=== PATIENT | male | born 1930 | race Caucasian/White ===

== ENCOUNTER 2017-05-19 12:41 | Inpatient (IN) ==
[2017-05-19] MEDS ORDERED: PANTOPRAZOLE 40 MG VIAL IV STA (13:17)
[2017-05-19] MEDS ORDERED: ONDANSETRON 4 MG/2 ML VIAL IV STA (13:17)
[2017-05-19] MEDS ORDERED: METOCLOPRAMIDE 10 MG/2 ML VIAL IV STA (13:17)
[2017-05-19 13:29] LABS: Basophils % 0.3 % (0.0-0.8); Hematocrit 23.5 VOL% (42.0-52.0); Hemoglobin 7.2 GM/DL (14.0-18.0); Immature Granulocytes % 0.3 %; Immature Granulocytes Absolute 0.02 #; Lymphocytes # 1.2 10*3/uL (1.4-4.0); Lymphocytes % 14.8 % (21.2-54.2); Mean Corpuscular HGB Conc 30.6 GM/DL (32-36); Mean Corpuscular Hemoglobin 28 PG (27-34); Mean Corpuscular Volume 91.4 FL (87-102); Mean Platelet Volume 11.7 FL (9.6-12.0); Monocytes # 0.4 10*3/uL (0.11-0.8); Monocytes % 4.6 % (1.7-12.7); Neutrophils # 6.3 10*3/uL (1.4-7.4); Platelet Count 153 T/CUMM (130-400); Red Blood Count 2.57 MC/CUMM (3.8-5.5); Red Cell Distribution Width 14.6 % (9.3-17.3); White Blood Count 7.8 T/CUMM (4-12)
[2017-05-19] MEDS ORDERED: ONDANSETRON 4 MG/2 ML VIAL ONE (13:30)
[2017-05-19] MEDS ORDERED: METOCLOPRAMIDE 10 MG/2 ML VIAL ONE (13:30)
[2017-05-19] MEDS ORDERED: PANTOPRAZOLE 40 MG VIAL IV ONE (13:30)
[2017-05-19 13:37] LABS: INR 1.1; PT Patient Result 11.9 SECS
[2017-05-19 13:43] LABS: Alanine Aminotransferase 12 U/L (16-61); Alkaline Phosphatase 59 U/L (45-117); Aspartate Amino Transferase 24 U/L (0-37); Blood Urea Nitrogen 55 MG/DL (7-18); Calcium 8.6 MG/DL (8.5-10.1); Glucose 126 MG/DL (74-106); Osmolality,Calculated 302.8 MOS/KG (273-304); Potassium 4.4 MMOL/L (3.5-5.1); Sodium 144 MMOL/L (136-145); Total Protein 5.4 G/DL (6.4-8.3)
[2017-05-19] MEDS ORDERED: TRIAZOLAM 0.25 MG PO PRN (16:07)
[2017-05-19] MEDS ORDERED: ONDANSETRON 4 MG/2 ML VIAL IV PRN (16:07)
[2017-05-19] MEDS ORDERED: NITROGLYCERIN SL 0.4 MG TABLET SL PRN (16:07)
[2017-05-19] MEDS ORDERED: SODIUM CHLORIDE 0.9% 1,000 ML IV PRN (16:07)
[2017-05-19 16:30] LABS: Hematocrit 19.1 VOL% (42.0-52.0)
[2017-05-19 16:47] LABS: Hemoglobin 5.9 GM/DL (14.0-18.0)
[2017-05-19 19:51] LABS: Apearance,Urine CLEAR (Clear); Bacteria,Urine Occasional /HPF (Few); Bilirubin,Urine Negative (Negative); Blood, Urine Negative (Negative); Glucose,Urine (UA) Negative (Negative); Ketones,Urine Negative (Negative); Mucus,Urine Occasional /LPF (Occasional); Nitrite,Urine Negative (Negative); Protein,Urine Negative; RBC,Urine <1 /HPF (0-4); Urine Color Yellow (Yellow); Urine Specific Gravity 1.017 (1.001-1.035); Urine Urobilinogen < 2.0 EU/DL (0.2-1.0); WBC,Urine 1 /HPF (0-6)
[2017-05-19] MEDS: PANTOPRAZOLE 40 MG VIAL IV SCH (21:19)
[2017-05-19] MEDS: SILODOSIN 8 MG CAPSULE PO SCH (21:19)
[2017-05-19 22:04] LABS: Hematocrit 20.1 VOL% (42.0-52.0)
[2017-05-19 22:08] LABS: Hemoglobin 6.4 GM/DL (14.0-18.0)
[2017-05-20] MEDS: SODIUM CHLORIDE 0.9% 1,000 ML IV SCH ×3 (02:17→21:39)
[2017-05-20 04:14] LABS: Basophils % 0.3 % (0.0-0.8); Eosinophils % 0.5 % (0.00-10.9); Hematocrit 21.5 VOL% (42.0-52.0); Immature Granulocytes % 0.6 %; Immature Granulocytes Absolute 0.04 #; Lymphocytes # 1.3 10*3/uL (1.4-4.0); Lymphocytes % 20.2 % (21.2-54.2); Mean Corpuscular HGB Conc 32.6 GM/DL (32-36); Mean Corpuscular Hemoglobin 29 PG (27-34); Mean Corpuscular Volume 90.3 FL (87-102); Mean Platelet Volume 11.7 FL (9.6-12.0); Monocytes # 0.5 10*3/uL (0.11-0.8); NRBC # 0.05 10*3/uL; Neutrophils # 4.6 10*3/uL (1.4-7.4); Neutrophils % 71.4 % (38.7-73.9); Platelet Count 103 T/CUMM (130-400); Red Blood Count 2.38 MC/CUMM (3.8-5.5); Red Cell Distribution Width 14.6 % (9.3-17.3); White Blood Count 6.5 T/CUMM (4-12)
[2017-05-20 04:46] LABS: Calcium 7.9 MG/DL (8.5-10.1); Osmolality,Calculated 301.8 MOS/KG (273-304); Potassium 4.3 MMOL/L (3.5-5.1)
[2017-05-20 04:53] LABS: % Iron Saturation 92.1 % (18-50); Ferritin 1526.6 ng/ml (26-388)
[2017-05-20 05:48] LABS: Folate 18.4 NG/ML (5.4-24.0); Vitamin B12 733 PG/ML (211-911)
[2017-05-20 06:07] LABS: Giant Platelets Few; Hypochromasia 1+; Ovalocytes Slight; Platelet Estimate Decreased
[2017-05-20 07:02] LABS: Sedimentation Rate-Westergren 5 MM/HR (0-20)
[2017-05-20] MEDS ORDERED: PANTOPRAZOLE 40 MG VIAL IV SCH (09:00)
[2017-05-20 10:02] LABS: Hematocrit 21.7 VOL% (42.0-52.0); Hemoglobin 6.9 GM/DL (14.0-18.0)
[2017-05-20] MEDS ORDERED: SODIUM CHLORIDE 0.9% 1,000 ML IV PRN (10:07)
[2017-05-20] MEDS: NEBIVOLOL 5 MG TABLET PO SCH (10:08)
[2017-05-20] MEDS: PANTOPRAZOLE 40 MG VIAL IV SCH ×2 (10:09→21:35)
[2017-05-20] MEDS: ATORVASTATIN 10 MG TABLET PO SCH (10:09)
[2017-05-20] MEDS: FUROSEMIDE 20 MG TABLET PO PRN (10:09)
[2017-05-20] MEDS: ASPIRIN EC 81 MG TABLET PO SCH (10:09)
[2017-05-20] MEDS: SILODOSIN 8 MG CAPSULE PO SCH (17:08)
[2017-05-20] MEDS: SIMETHICONE CHEW 80 MG TABLET PO SCH ×2 (17:08→21:35)
[2017-05-21] MEDS: DIPHENOXYLATE/ATROPINE 2.5-0.025 MG TABLET PO PRN ×2 (00:52→11:06)
[2017-05-21 06:34] LABS: Basophils % 0.1 % (0.0-0.8); Eosinophils % 0.4 % (0.00-10.9); Hematocrit 19.7 VOL% (42.0-52.0); Immature Granulocytes % 0.4 %; Immature Granulocytes Absolute 0.03 #; Lymphocytes # 1.6 10*3/uL (1.4-4.0); Mean Corpuscular HGB Conc 32.5 GM/DL (32-36); Mean Corpuscular Hemoglobin 29 PG (27-34); Mean Corpuscular Volume 90.4 FL (87-102); Mean Platelet Volume 11.7 FL (9.6-12.0); Monocytes # 0.5 10*3/uL (0.11-0.8); Monocytes % 6.4 % (1.7-12.7); Neutrophils # 5.2 10*3/uL (1.4-7.4); Neutrophils % 70.7 % (38.7-73.9); Platelet Count 106 T/CUMM (130-400); Red Blood Count 2.18 MC/CUMM (3.8-5.5); Red Cell Distribution Width 14.7 % (9.3-17.3); White Blood Count 7.4 T/CUMM (4-12)
[2017-05-21 06:43] LABS: Hemoglobin 6.4 GM/DL (14.0-18.0)
[2017-05-21] MEDS: SODIUM CHLORIDE 0.9% 1,000 ML IV SCH (06:49)
[2017-05-21 06:57] LABS: Calcium 7.8 MG/DL (8.5-10.1); Osmolality,Calculated 299.8 MOS/KG (273-304); Potassium 3.8 MMOL/L (3.5-5.1)
[2017-05-21] MEDS ORDERED: SODIUM CHLORIDE 0.9% 1,000 ML IV PRN (08:34)
[2017-05-21] MEDS: ASPIRIN EC 81 MG TABLET PO SCH (11:06)
[2017-05-21] MEDS: SIMETHICONE CHEW 80 MG TABLET PO SCH ×4 (11:06→21:15)
[2017-05-21] MEDS: PANTOPRAZOLE 40 MG VIAL IV SCH ×2 (11:06→21:15)
[2017-05-21] MEDS: ATORVASTATIN 10 MG TABLET PO SCH (11:06)
[2017-05-21] MEDS: FUROSEMIDE 20 MG TABLET PO PRN (11:06)
[2017-05-21] MEDS: NEBIVOLOL 5 MG TABLET PO SCH (11:06)
[2017-05-21] MEDS: SILODOSIN 8 MG CAPSULE PO SCH (18:51)
[2017-05-21 20:19] LABS: Hematocrit 25.9 VOL% (42.0-52.0); Hemoglobin 8.6 GM/DL (14.0-18.0)
[2017-05-22] MEDS: SODIUM CHLORIDE 0.9% 1,000 ML IV SCH ×4 (01:42→20:38)
[2017-05-22 07:55] LABS: Basophils % 0.4 % (0.0-0.8); Eosinophils # 0.1 10*3/uL (0.0-0.87); Eosinophils % 0.7 % (0.00-10.9); Hematocrit 24.9 VOL% (42.0-52.0); Hemoglobin 8.4 GM/DL (14.0-18.0); Immature Granulocytes % 0.5 %; Immature Granulocytes Absolute 0.04 #; Lymphocytes # 1.7 10*3/uL (1.4-4.0); Lymphocytes % 22.5 % (21.2-54.2); Mean Corpuscular HGB Conc 33.7 GM/DL (32-36); Mean Corpuscular Hemoglobin 30 PG (27-34); Mean Corpuscular Volume 89.2 FL (87-102); Mean Platelet Volume 11.5 FL (9.6-12.0); Monocytes # 0.5 10*3/uL (0.11-0.8); Monocytes % 6.6 % (1.7-12.7); NRBC # 0.03 10*3/uL; Neutrophils # 5.2 10*3/uL (1.4-7.4); Neutrophils % 69.3 % (38.7-73.9); Platelet Count 119 T/CUMM (130-400); Red Blood Count 2.79 MC/CUMM (3.8-5.5); Red Cell Distribution Width 15.6 % (9.3-17.3); White Blood Count 7.5 T/CUMM (4-12)
[2017-05-22 08:10] LABS: Calcium 7.8 MG/DL (8.5-10.1); Osmolality,Calculated 295.8 MOS/KG (273-304); Potassium 3.6 MMOL/L (3.5-5.1)
[2017-05-22] MEDS ORDERED: LIDOCAINE 100 MG/5 ML SYRINGE ONE (09:00)
[2017-05-22] MEDS ORDERED: PROPOFOL 200 MG/20 ML VIAL IV ONE (09:00)
[2017-05-22] MEDS: PANTOPRAZOLE 40 MG VIAL IV SCH ×2 (09:08→20:34)
[2017-05-22] MEDS: ASPIRIN EC 81 MG TABLET PO SCH (10:27)
[2017-05-22] MEDS: ATORVASTATIN 10 MG TABLET PO SCH (10:28)
[2017-05-22] MEDS: SIMETHICONE CHEW 80 MG TABLET PO SCH ×5 (10:28→20:36)
[2017-05-22] MEDS: NEBIVOLOL 5 MG TABLET PO SCH (10:50)
[2017-05-22 13:08] LABS: Hemoglobin A1 (Alkaline) 98.2 % (96.5-98.5); Hemoglobin A2 (Alkaline) 1.8 % (1.5-3.5)
[2017-05-22] MEDS ORDERED: EPINEPHrine 1 MG/ML VIAL ONE (14:22)
[2017-05-22] MEDS: ACETAMINOPHEN 325 MG TABLET PO PRN ×2 (15:22→20:34)
[2017-05-22] MEDS: SILODOSIN 8 MG CAPSULE PO SCH (16:33)
[2017-05-22] MEDS ORDERED: ACETAMINOPHEN 500 MG TABLET PO PRN (20:24)
[2017-05-22] MEDS: DIPHENOXYLATE/ATROPINE 2.5-0.025 MG TABLET PO PRN (20:34)
[2017-05-23] MEDS: SODIUM CHLORIDE 0.9% 1,000 ML IV SCH ×2 (04:53→22:06)
[2017-05-23 05:15] LABS: Basophils % 0.2 % (0.0-0.8); Eosinophils # 0.1 10*3/uL (0.0-0.87); Eosinophils % 1.2 % (0.00-10.9); Hematocrit 22.1 VOL% (42.0-52.0); Hemoglobin 7.3 GM/DL (14.0-18.0); Immature Granulocytes % 0.4 %; Immature Granulocytes Absolute 0.02 #; Lymphocytes # 1.2 10*3/uL (1.4-4.0); Lymphocytes % 22.3 % (21.2-54.2); Mean Corpuscular Hemoglobin 30 PG (27-34); Mean Corpuscular Volume 92.1 FL (87-102); Mean Platelet Volume 11.3 FL (9.6-12.0); Monocytes # 0.4 10*3/uL (0.11-0.8); Monocytes % 7.5 % (1.7-12.7); Neutrophils # 3.6 10*3/uL (1.4-7.4); Neutrophils % 68.4 % (38.7-73.9); Platelet Count 119 T/CUMM (130-400); Red Cell Distribution Width 16.1 % (9.3-17.3); White Blood Count 5.2 T/CUMM (4-12)
[2017-05-23 05:42] LABS: Calcium 7.9 MG/DL (8.5-10.1); Magnesium 1.8 MG/DL (1.8-2.4); Osmolality,Calculated 296.6 MOS/KG (273-304); Potassium 3.6 MMOL/L (3.5-5.1)
[2017-05-23] MEDS ORDERED: SODIUM CHLORIDE 0.9% 1,000 ML IV PRN (09:06)
[2017-05-23] MEDS: ASPIRIN EC 81 MG TABLET PO SCH (09:36)
[2017-05-23] MEDS: NEBIVOLOL 5 MG TABLET PO SCH (09:37)
[2017-05-23] MEDS: SIMETHICONE CHEW 80 MG TABLET PO SCH ×4 (09:37→22:08)
[2017-05-23] MEDS: ATORVASTATIN 10 MG TABLET PO SCH (09:37)
[2017-05-23] MEDS: PANTOPRAZOLE 40 MG VIAL IV SCH ×2 (09:37→22:08)
[2017-05-23 16:57] LABS: Hematocrit 29.4 VOL% (42.0-52.0); Hemoglobin 9.7 GM/DL (14.0-18.0)
[2017-05-23] MEDS: SILODOSIN 8 MG CAPSULE PO SCH (17:46)
[2017-05-23] MEDS: DIPHENOXYLATE/ATROPINE 2.5-0.025 MG TABLET PO PRN (22:07)
[2017-05-24 05:55] LABS: Basophils % 0.6 % (0.0-0.8); Eosinophils # 0.1 10*3/uL (0.0-0.87); Eosinophils % 2.1 % (0.00-10.9); Hemoglobin 9.3 GM/DL (14.0-18.0); Immature Granulocytes % 0.2 %; Immature Granulocytes Absolute 0.01 #; Lymphocytes # 1.3 10*3/uL (1.4-4.0); Lymphocytes % 24.2 % (21.2-54.2); Mean Corpuscular HGB Conc 33.2 GM/DL (32-36); Mean Corpuscular Hemoglobin 30 PG (27-34); Mean Corpuscular Volume 91.2 FL (87-102); Mean Platelet Volume 10.9 FL (9.6-12.0); Monocytes # 0.4 10*3/uL (0.11-0.8); Monocytes % 7.8 % (1.7-12.7); NRBC # 0.02 10*3/uL; Neutrophils # 3.4 10*3/uL (1.4-7.4); Neutrophils % 65.1 % (38.7-73.9); Platelet Count 126 T/CUMM (130-400); Red Blood Count 3.07 MC/CUMM (3.8-5.5); Red Cell Distribution Width 16.5 % (9.3-17.3); White Blood Count 5.3 T/CUMM (4-12)
[2017-05-24 06:26] LABS: Calcium 7.6 MG/DL (8.5-10.1); Magnesium 1.9 MG/DL (1.8-2.4); Osmolality,Calculated 295.4 MOS/KG (273-304); Potassium 3.6 MMOL/L (3.5-5.1)
[2017-05-24] MEDS ORDERED: HYDROCORTISONE 1% CREAM 28 GM TUBE TOP PRN (07:21)
[2017-05-24] MEDS: ATORVASTATIN 10 MG TABLET PO SCH (10:01)
[2017-05-24] MEDS: ASPIRIN EC 81 MG TABLET PO SCH (10:01)
[2017-05-24] MEDS: PANTOPRAZOLE 40 MG VIAL IV SCH ×2 (10:01→20:55)
[2017-05-24] MEDS: FUROSEMIDE 20 MG TABLET PO PRN (10:01)
[2017-05-24] MEDS: NEBIVOLOL 5 MG TABLET PO SCH (10:02)
[2017-05-24] MEDS: SIMETHICONE CHEW 80 MG TABLET PO SCH ×4 (10:04→20:54)
[2017-05-24] MEDS: SODIUM CHLORIDE 0.9% 1,000 ML IV SCH (10:07)
[2017-05-24] MEDS: SILODOSIN 8 MG CAPSULE PO SCH (18:00)
[2017-05-25 03:38] LABS: Basophils % 0.5 % (0.0-0.8); Eosinophils # 0.2 10*3/uL (0.0-0.87); Eosinophils % 3.2 % (0.00-10.9); Hematocrit 27.9 VOL% (42.0-52.0); Hemoglobin 9.1 GM/DL (14.0-18.0); Immature Granulocytes % 0.4 %; Immature Granulocytes Absolute 0.02 #; Lymphocytes # 0.9 10*3/uL (1.4-4.0); Lymphocytes % 15.6 % (21.2-54.2); Mean Corpuscular HGB Conc 32.6 GM/DL (32-36); Mean Corpuscular Hemoglobin 31 PG (27-34); Mean Corpuscular Volume 93.6 FL (87-102); Mean Platelet Volume 10.7 FL (9.6-12.0); Monocytes # 0.5 10*3/uL (0.11-0.8); Monocytes % 8.1 % (1.7-12.7); Neutrophils # 4.1 10*3/uL (1.4-7.4); Neutrophils % 72.2 % (38.7-73.9); Platelet Count 132 T/CUMM (130-400); Red Blood Count 2.98 MC/CUMM (3.8-5.5); Red Cell Distribution Width 16.3 % (9.3-17.3); White Blood Count 5.7 T/CUMM (4-12)
[2017-05-25 04:05] LABS: Calcium 7.6 MG/DL (8.5-10.1); Magnesium 1.8 MG/DL (1.8-2.4); Osmolality,Calculated 290.7 MOS/KG (273-304); Potassium 3.4 MMOL/L (3.5-5.1)
[2017-05-25] MEDS: SODIUM CHLORIDE 0.9% 1,000 ML IV SCH (06:53)
[2017-05-25] MEDS: ASPIRIN EC 81 MG TABLET PO SCH (08:54)
[2017-05-25] MEDS: ATORVASTATIN 10 MG TABLET PO SCH (08:54)
[2017-05-25] MEDS: SIMETHICONE CHEW 80 MG TABLET PO SCH ×2 (08:55→12:18)
[2017-05-25] MEDS: NEBIVOLOL 5 MG TABLET PO SCH (08:55)
[2017-05-25] MEDS: PANTOPRAZOLE 40 MG VIAL IV SCH (08:55)
[2017-05-25] MEDS ORDERED: POTASSIUM CHLORIDE 20 MEQ TABLET PO PRN (11:06)
[2017-05-25] MEDS ORDERED: amLODIPine 2.5 MG TABLET PO SCH (11:30)
[2017-05-25 14:33] VITALS: BP 177/82
== END 2017-05-25 15:30 | disposition home or self-care (01) | DRG 378 ==
LOC: EDUNIT# → EDBD → N.ED 12:41 → SUATTDRO 14:01 → N.EDINP 14:01 → N.4E 16:00
PROVIDERS: ADMIT Hospitalist; ATTEND Internal Medicine Cardiovascular Disease

== ENCOUNTER 2017-12-26 00:35 | Inpatient (IN) ==
[2017-12-26] MEDS ORDERED: SODIUM CHLORIDE 0.9% 500 ML IV STA (00:58)
[2017-12-26 01:10] LABS: Basophils % 0.8 % (0.0-0.8); Eosinophils # 0.1 10*3/uL (0.0-0.87); Eosinophils % 2.6 % (0.00-10.9); Hematocrit 35.3 VOL% (42.0-52.0); Hemoglobin 11.4 GM/DL (14.0-18.0); Immature Granulocytes % 0.2 %; Immature Granulocytes Absolute 0.01 #; Lymphocytes # 1.5 10*3/uL (1.4-4.0); Lymphocytes % 30.1 % (21.2-54.2); Mean Corpuscular HGB Conc 32.3 GM/DL (32-36); Mean Corpuscular Hemoglobin 30 PG (27-34); Mean Corpuscular Volume 92.7 FL (87-102); Mean Platelet Volume 10.8 FL (9.6-12.0); Monocytes # 0.5 10*3/uL (0.11-0.8); Monocytes % 9.7 % (1.7-12.7); Neutrophils # 2.9 10*3/uL (1.4-7.4); Neutrophils % 56.6 % (38.7-73.9); Platelet Count 156 T/CUMM (130-400); Red Blood Count 3.81 MC/CUMM (3.8-5.5); Red Cell Distribution Width 13.7 % (9.3-17.3); White Blood Count 5.1 T/CUMM (4-12)
[2017-12-26 01:37] LABS: Albumin 3.6 G/DL (3.4-5.0); Bilirubin,Total 0.4 MG/DL (0.2-1.0); Calcium 8.8 MG/DL (8.5-10.1); Osmolality,Calculated 292.7 MOS/KG (273-304); Potassium 4.3 MMOL/L (3.5-5.1); Total Protein 6.1 G/DL (6.4-8.3)
[2017-12-26 01:43] LABS: Apearance,Urine CLOUDY (Clear); Bilirubin,Urine Negative (Negative); Blood, Urine Large mg/dL (Negative); Glucose,Urine (UA) Negative (Negative); Ketones,Urine Negative (Negative); Nitrite,Urine Negative (Negative); Protein,Urine 100 MG/DL; RBC,Urine 9093 /HPF (0-4); Urine Color Amber (Yellow); Urine Specific Gravity 1.016 (1.001-1.035); Urine Urobilinogen < 2.0 EU/DL (0.2-1.0)
[2017-12-26] MEDS ORDERED: hydrALAZINE 20 MG/1 ML VIAL IV STA ×2 (02:00)
[2017-12-26] MEDS ORDERED: ONDANSETRON 4 MG/2 ML VIAL IV PRN (02:07)
[2017-12-26] MEDS ORDERED: hydrALAZINE 20 MG/1 ML VIAL IV PRN (02:07)
[2017-12-26] MEDS ORDERED: diphenhydrAMINE CAP 25 MG CAPSULE PO PRN (02:07)
[2017-12-26] MEDS ORDERED: cloNIDine 0.1 MG TABLET PO PRN (02:12)
[2017-12-26] MEDS ORDERED: FUROSEMIDE 20 MG TABLET PO PRN (02:12)
[2017-12-26] MEDS ORDERED: DIPHENOXYLATE/ATROPINE 2.5-0.025 MG TABLET PO PRN (02:12)
[2017-12-26] MEDS ORDERED: KETOROLAC 15 MG/1 ML VIAL IV STA (03:35)
[2017-12-26] MEDS ORDERED: KETOROLAC 30 MG/1 ML VIAL ONE (03:37)
[2017-12-26 07:01] LABS: Basophils % 0.7 % (0.0-0.8); Eosinophils # 0.1 10*3/uL (0.0-0.87); Eosinophils % 1.5 % (0.00-10.9); Hematocrit 31.2 VOL% (42.0-52.0); Hemoglobin 10.1 GM/DL (14.0-18.0); Immature Granulocytes % 0.2 %; Immature Granulocytes Absolute 0.01 #; Lymphocytes # 1.2 10*3/uL (1.4-4.0); Lymphocytes % 25.8 % (21.2-54.2); Mean Corpuscular HGB Conc 32.4 GM/DL (32-36); Mean Corpuscular Hemoglobin 30 PG (27-34); Mean Corpuscular Volume 92.3 FL (87-102); Mean Platelet Volume 10.8 FL (9.6-12.0); Monocytes # 0.3 10*3/uL (0.11-0.8); Monocytes % 7.5 % (1.7-12.7); Neutrophils # 2.9 10*3/uL (1.4-7.4); Neutrophils % 64.3 % (38.7-73.9); Platelet Count 129 T/CUMM (130-400); Red Blood Count 3.38 MC/CUMM (3.8-5.5); Red Cell Distribution Width 13.8 % (9.3-17.3); White Blood Count 4.5 T/CUMM (4-12)
[2017-12-26] MEDS: PANTOPRAZOLE 40 MG TABLET PO SCH ×2 (08:52→21:27)
[2017-12-26] MEDS: FERROUS GLUCONATE 240 MG TABLET PO SCH (08:52)
[2017-12-26] MEDS: MULTIVITAMIN (OCUVITE) TABLET PO SCH ×2 (08:53→21:26)
[2017-12-26] MEDS: LOSARTAN 50 MG TABLET PO SCH ×2 (08:53→21:27)
[2017-12-26] MEDS: ESCITALOPRAM 10 MG TABLET PO SCH (08:53)
[2017-12-26] MEDS: MULTIVITAMIN (CENTRUM) TABLET PO SCH (08:53)
[2017-12-26] MEDS ORDERED: NON-FORMULARY MEDICATION (Dexlansoprazole [Dexilant] 60 MG) PO SCH (09:00)
[2017-12-26] MEDS ORDERED: MORPHINE 4 MG/1 ML VIAL IV PRN (12:10)
[2017-12-26] MEDS ORDERED: NITROGLYCERIN SL 0.4 MG TABLET SL PRN (12:14)
[2017-12-26] MEDS: SILODOSIN 8 MG CAPSULE PO SCH (16:31)
[2017-12-26] MEDS: ATORVASTATIN 10 MG TABLET PO SCH (21:27)
[2017-12-27] MEDS: MULTIVITAMIN (OCUVITE) TABLET PO SCH ×2 (09:14→22:24)
[2017-12-27] MEDS: MULTIVITAMIN (CENTRUM) TABLET PO SCH (09:14)
[2017-12-27] MEDS: FERROUS GLUCONATE 240 MG TABLET PO SCH (09:14)
[2017-12-27] MEDS: ESCITALOPRAM 10 MG TABLET PO SCH (09:14)
[2017-12-27] MEDS: LOSARTAN 50 MG TABLET PO SCH ×2 (09:14→22:26)
[2017-12-27] MEDS: PANTOPRAZOLE 40 MG TABLET PO SCH ×2 (09:14→22:24)
[2017-12-27] MEDS ORDERED: SIMETHICONE CHEW 125 MG TABLET PO PRN (13:00)
[2017-12-27] MEDS: SILODOSIN 8 MG CAPSULE PO SCH (16:15)
[2017-12-27] MEDS: ATORVASTATIN 10 MG TABLET PO SCH (22:24)
[2017-12-27] MEDS: ZALEPLON 5 MG CAPSULE PO PRN (22:24)
[2017-12-28] MEDS: MULTIVITAMIN (CENTRUM) TABLET PO SCH (09:42)
[2017-12-28] MEDS: LOSARTAN 50 MG TABLET PO SCH ×2 (09:42→20:50)
[2017-12-28] MEDS: MULTIVITAMIN (OCUVITE) TABLET PO SCH ×2 (09:42→20:50)
[2017-12-28] MEDS: ESCITALOPRAM 10 MG TABLET PO SCH (09:43)
[2017-12-28] MEDS: PANTOPRAZOLE 40 MG TABLET PO SCH ×2 (09:43→20:50)
[2017-12-28] MEDS: FERROUS GLUCONATE 240 MG TABLET PO SCH (09:43)
[2017-12-28] MEDS: SILODOSIN 8 MG CAPSULE PO SCH (17:50)
[2017-12-28] MEDS: ATORVASTATIN 10 MG TABLET PO SCH (20:50)
[2017-12-28] MEDS: ZALEPLON 5 MG CAPSULE PO PRN (20:50)
[2017-12-28] MEDS: DOCUSATE SODIUM 100 MG CAPSULE PO SCH ×2 (20:50→20:53)
[2017-12-29] MEDS ORDERED: LIDOCAINE 2% TOP JELLY 20 ML VIAL INTRAURETH ONE (06:17)
[2017-12-29] MEDS ORDERED: POLYETHYLENE GLYCOL POWDER 17 GM PACK PO SCH (09:00)
[2017-12-29] MEDS: DOCUSATE SODIUM 100 MG CAPSULE PO SCH (09:22)
[2017-12-29] MEDS: MULTIVITAMIN (CENTRUM) TABLET PO SCH (09:24)
[2017-12-29] MEDS: FERROUS GLUCONATE 240 MG TABLET PO SCH (09:24)
[2017-12-29] MEDS: LOSARTAN 50 MG TABLET PO SCH (09:24)
[2017-12-29] MEDS: ESCITALOPRAM 10 MG TABLET PO SCH (09:24)
[2017-12-29] MEDS: MULTIVITAMIN (OCUVITE) TABLET PO SCH (09:24)
[2017-12-29] MEDS: PANTOPRAZOLE 40 MG TABLET PO SCH (09:24)
[2017-12-29 11:56] VITALS: BP 139/81
== END 2017-12-29 13:05 | disposition home or self-care (01) | DRG 694 ==
LOC: EDUNIT# → EDBD → N.ED 00:35 → N.EDINP 00:35 → N.3E 03:05 → SUATTDRO 14:41
PROVIDERS: ADMIT Internal Medicine; ATTEND Hospitalist

== ENCOUNTER 2018-02-14 11:10 | Inpatient (IN) ==
[2018-02-14] MEDS ORDERED: ONDANSETRON 4 MG/2 ML VIAL IV STA (11:56)
[2018-02-14] MEDS ORDERED: HYDROmorphone 2 MG/1 ML VIAL IV STA (11:56)
[2018-02-14 12:22] LABS: Basophils % 0.5 % (0.0-0.8); Eosinophils # 0.1 10*3/uL (0.0-0.87); Eosinophils % 0.8 % (0.00-10.9); Hematocrit 38.3 VOL% (42.0-52.0); Hemoglobin 11.9 GM/DL (14.0-18.0); Immature Granulocytes % 0.1 %; Immature Granulocytes Absolute 0.01 #; Lymphocytes # 1.4 10*3/uL (1.4-4.0); Lymphocytes % 17.2 % (21.2-54.2); Mean Corpuscular HGB Conc 31.1 GM/DL (32-36); Mean Corpuscular Hemoglobin 29 PG (27-34); Mean Corpuscular Volume 91.8 FL (87-102); Mean Platelet Volume 10.3 FL (9.6-12.0); Monocytes # 0.4 10*3/uL (0.11-0.8); Monocytes % 4.7 % (1.7-12.7); Neutrophils % 76.7 % (38.7-73.9); Platelet Count 233 T/CUMM (130-400); Red Blood Count 4.17 MC/CUMM (3.8-5.5); Red Cell Distribution Width 13.2 % (9.3-17.3); White Blood Count 7.9 T/CUMM (4-12)
[2018-02-14 12:33] LABS: INR 1.1; PT Patient Result 11.8 SECS; Partial Thromboplastin Time 27.7 SECS (0-40)
[2018-02-14 12:39] LABS: Calcium 8.9 MG/DL (8.5-10.1); Osmolality,Calculated 276.8 MOS/KG (273-304); Potassium 4.8 MMOL/L (3.5-5.1)
[2018-02-14 13:30] LABS: Apearance,Urine CLEAR (Clear); Bilirubin,Urine Negative (Negative); Blood, Urine Large mg/dL (Negative); Glucose,Urine (UA) Negative (Negative); Ketones,Urine Negative (Negative); Nitrite,Urine Negative (Negative); Protein,Urine 30 MG/DL; RBC,Urine 948 /HPF (0-4); Urine Color Yellow (Yellow); Urine Specific Gravity 1.003 (1.001-1.035); Urine Urobilinogen < 2.0 EU/DL (0.2-1.0); WBC,Urine 4 /HPF (0-6)
[2018-02-14] MEDS ORDERED: ONDANSETRON 4 MG/2 ML VIAL IV PRN (17:25)
[2018-02-14] MEDS ORDERED: SODIUM CHLORIDE 0.45% 1,000 ML IV SCH (17:25)
[2018-02-14] MEDS ORDERED: PROMETHAZINE 25 MG/1 ML VIAL IM PRN (17:25)
[2018-02-14] MEDS ORDERED: ACETAMINOPHEN 325 MG TABLET PO PRN (17:25)
[2018-02-14] MEDS ORDERED: MEPERIDINE 25 MG/1 ML VIAL IM PRN (19:11)
[2018-02-15 05:55] LABS: Basophils % 0.6 % (0.0-0.8); Eosinophils # 0.1 10*3/uL (0.0-0.87); Eosinophils % 1.8 % (0.00-10.9); Hemoglobin 10.5 GM/DL (14.0-18.0); Immature Granulocytes % 0.3 %; Immature Granulocytes Absolute 0.02 #; Lymphocytes # 1.4 10*3/uL (1.4-4.0); Lymphocytes % 20.8 % (21.2-54.2); Mean Corpuscular HGB Conc 31.8 GM/DL (32-36); Mean Corpuscular Hemoglobin 29 PG (27-34); Mean Corpuscular Volume 92.2 FL (87-102); Mean Platelet Volume 10.3 FL (9.6-12.0); Monocytes # 0.5 10*3/uL (0.11-0.8); Monocytes % 7.8 % (1.7-12.7); Neutrophils # 4.5 10*3/uL (1.4-7.4); Neutrophils % 68.7 % (38.7-73.9); Platelet Count 188 T/CUMM (130-400); Red Blood Count 3.58 MC/CUMM (3.8-5.5); Red Cell Distribution Width 13.3 % (9.3-17.3); White Blood Count 6.5 T/CUMM (4-12)
[2018-02-15] MEDS ORDERED: DIPHENOXYLATE/ATROPINE 2.5-0.025 MG TABLET PO PRN (08:23)
[2018-02-15] MEDS ORDERED: NITROGLYCERIN SL 0.4 MG TABLET SL PRN (08:23)
[2018-02-15] MEDS ORDERED: cloNIDine 0.1 MG TABLET PO PRN (08:23)
[2018-02-15] MEDS ORDERED: Triazolam [Halcion] 0.25 MG PO PRN (08:23)
[2018-02-15] MEDS ORDERED: INFLUENZA VIRUS VACCINE 0.5 ML SYRINGE IM ONE (09:00)
[2018-02-15] MEDS: MULTIVITAMIN (OCUVITE) TABLET PO SCH ×2 (10:31→20:46)
[2018-02-15] MEDS: FERROUS GLUCONATE 324 MG TABLET PO SCH (10:32)
[2018-02-15] MEDS: PANTOPRAZOLE 40 MG TABLET PO SCH (10:32)
[2018-02-15] MEDS: FUROSEMIDE 20 MG TABLET PO SCH (10:32)
[2018-02-15] MEDS: amLODIPine 2.5 MG TABLET PO SCH (10:32)
[2018-02-15] MEDS: LOSARTAN 50 MG TABLET PO SCH ×2 (10:32→20:46)
[2018-02-15] MEDS: MULTIVITAMIN (CENTRUM) TABLET PO SCH (10:35)
[2018-02-15] MEDS ORDERED: SILODOSIN 8 MG CAPSULE PO SCH (18:00)
[2018-02-15] MEDS ORDERED: ESCITALOPRAM 10 MG TABLET PO SCH (19:00)
[2018-02-15] MEDS ORDERED: ATORVASTATIN 10 MG TABLET PO SCH (21:00)
[2018-02-16] MEDS: PANTOPRAZOLE 40 MG TABLET PO SCH (08:41)
[2018-02-16] MEDS: FUROSEMIDE 20 MG TABLET PO SCH (08:41)
[2018-02-16] MEDS: MULTIVITAMIN (CENTRUM) TABLET PO SCH (08:41)
[2018-02-16] MEDS: LOSARTAN 50 MG TABLET PO SCH (08:41)
[2018-02-16] MEDS: MULTIVITAMIN (OCUVITE) TABLET PO SCH (08:41)
[2018-02-16] MEDS: FERROUS GLUCONATE 324 MG TABLET PO SCH (08:41)
[2018-02-16] MEDS: amLODIPine 2.5 MG TABLET PO SCH (08:41)
[2018-02-16 10:52] VITALS: BP 127/69
== END 2018-02-16 10:25 | disposition home or self-care (01) | DRG 696 ==
LOC: N.ED 11:10 → N.EDINP 13:25 → N.2W 16:40 → N.5E 17:30
PROVIDERS: ADMIT Urology; ATTEND Urology

== ENCOUNTER 2018-08-02 05:40 | Inpatient (IN) ==
[2018-08-02] MEDS ORDERED: ceFAZolin 1,000 MG in SYRINGE 1 EACH IV ONE (06:00)
[2018-08-02] MEDS ORDERED: ceFAZolin 1,000 MG VIAL IRRIG ONE (06:00)
[2018-08-02 07:12] LABS: Basophils % 0.7 % (0.0-0.8); Eosinophils # 0.2 10*3/uL (0.0-0.87); Eosinophils % 3.7 % (0.00-10.9); Hematocrit 39.1 VOL% (42.0-52.0); Hemoglobin 11.9 GM/DL (14.0-18.0); Immature Granulocytes % 0.2 %; Immature Granulocytes Absolute 0.01 #; Lymphocytes # 1.4 10*3/uL (1.4-4.0); Mean Corpuscular HGB Conc 30.4 GM/DL (32-36); Mean Corpuscular Hemoglobin 30 PG (27-34); Mean Platelet Volume 11.1 FL (9.6-12.0); Monocytes # 0.5 10*3/uL (0.11-0.8); Neutrophils # 3.2 10*3/uL (1.4-7.4); Neutrophils % 60.4 % (38.7-73.9); Platelet Count 121 T/CUMM (130-400); Red Blood Count 3.99 MC/CUMM (3.8-5.5); Red Cell Distribution Width 12.9 % (9.3-17.3); White Blood Count 5.4 T/CUMM (4-12)
[2018-08-02 07:37] LABS: Calcium 8.6 MG/DL (8.5-10.1); Osmolality,Calculated 285.1 MOS/KG (273-304); Potassium 4.1 MMOL/L (3.5-5.1)
[2018-08-02] MEDS ORDERED: MAGNESIUM SULF RIDER 4 GM in PREMIX 1 EACH IV PRN (07:40)
[2018-08-02] MEDS ORDERED: DOCUSATE SODIUM 100 MG CAPSULE PO PRN (07:40)
[2018-08-02] MEDS ORDERED: MAGNESIUM SULF RIDER 2 GM in PREMIX 1 EACH IV PRN (07:40)
[2018-08-02] MEDS ORDERED: TRIAZOLAM 0.125 MG PO PRN (07:43)
[2018-08-02] MEDS ORDERED: cloNIDine 0.1 MG TABLET PO PRN (07:43)
[2018-08-02] MEDS ORDERED: DIPHENOXYLATE/ATROPINE 2.5-0.025 MG TABLET PO PRN (07:43)
[2018-08-02] MEDS ORDERED: NITROGLYCERIN SL 0.4 MG TABLET SL PRN (07:43)
[2018-08-02] MEDS ORDERED: cephALEXin 500 MG CAPSULE PO ONE (08:39)
[2018-08-02] MEDS ORDERED: DABIGATRAN 75 MG CAPSULE PO SCH (09:00)
[2018-08-02] MEDS: FERROUS GLUCONATE 240 MG TABLET PO SCH (09:46)
[2018-08-02] MEDS: MULTIVITAMIN (OCUVITE) TABLET PO SCH ×2 (09:46→21:03)
[2018-08-02] MEDS: NAPROXEN 250 MG TABLET PO SCH ×2 (09:46→21:03)
[2018-08-02] MEDS: ASPIRIN EC 81 MG TABLET PO SCH (09:47)
[2018-08-02] MEDS: LOSARTAN 50 MG TABLET PO SCH ×2 (09:47→21:03)
[2018-08-02] MEDS: amLODIPine 2.5 MG TABLET PO SCH (09:47)
[2018-08-02] MEDS: MULTIVITAMIN (CENTRUM) TABLET PO SCH (09:47)
[2018-08-02] MEDS: PANTOPRAZOLE 40 MG TABLET PO SCH (09:47)
[2018-08-02] MEDS: DOCUSATE SODIUM 100 MG CAPSULE PO SCH (09:47)
[2018-08-02] MEDS: FUROSEMIDE 20 MG TABLET PO SCH (09:48)
[2018-08-02 11:41] LABS: Apearance,Urine CLEAR (Clear); Bilirubin,Urine Negative (Negative); Blood, Urine Negative (Negative); Glucose,Urine (UA) Negative (Negative); Hyaline Casts,Urine 4 /LPF (0-3); Ketones,Urine Negative (Negative); Mucus,Urine Occasional /LPF (Occasional); Nitrite,Urine Negative (Negative); Protein,Urine Negative; RBC,Urine 6 /HPF (0-4); Urine Color Yellow (Yellow); Urine Specific Gravity 1.011 (1.001-1.035); Urine Urobilinogen < 2.0 EU/DL (0.2-1.0); WBC,Urine 1 /HPF (0-6)
[2018-08-02] MEDS: cephALEXin 500 MG CAPSULE PO SCH ×2 (14:34→21:03)
[2018-08-02] MEDS ORDERED: SKIN HEALING OINT (AQUAPHOR) 50 GM TUBE TOP PRN (15:06)
[2018-08-02] MEDS ORDERED: CLOPIDOGREL 75 MG TABLET PO SCH (19:00)
[2018-08-02] MEDS: ATORVASTATIN 40 MG TABLET PO SCH (21:03)
[2018-08-03] MEDS: ACETAMINOPHEN 325 MG TABLET PO PRN ×2 (03:10→19:29)
[2018-08-03 04:39] LABS: Basophils % 0.6 % (0.0-0.8); Eosinophils # 0.2 10*3/uL (0.0-0.87); Eosinophils % 4.6 % (0.00-10.9); Hematocrit 36.3 VOL% (42.0-52.0); Hemoglobin 11.2 GM/DL (14.0-18.0); Immature Granulocytes % 0.2 %; Immature Granulocytes Absolute 0.01 #; Lymphocytes # 1.7 10*3/uL (1.4-4.0); Lymphocytes % 33.7 % (21.2-54.2); Mean Corpuscular HGB Conc 30.9 GM/DL (32-36); Mean Corpuscular Hemoglobin 30 PG (27-34); Mean Corpuscular Volume 97.6 FL (87-102); Mean Platelet Volume 10.7 FL (9.6-12.0); Monocytes # 0.4 10*3/uL (0.11-0.8); Monocytes % 8.8 % (1.7-12.7); Neutrophils # 2.6 10*3/uL (1.4-7.4); Neutrophils % 52.1 % (38.7-73.9); Platelet Count 115 T/CUMM (130-400); Red Blood Count 3.72 MC/CUMM (3.8-5.5); Red Cell Distribution Width 12.9 % (9.3-17.3)
[2018-08-03 04:51] LABS: Calcium 8.2 MG/DL (8.5-10.1); Potassium 4.1 MMOL/L (3.5-5.1)
[2018-08-03] MEDS: cephALEXin 500 MG CAPSULE PO SCH (06:16)
[2018-08-03] MEDS ORDERED: LIDOCAINE 1% 20 ML VIAL ONE (08:15)
[2018-08-03] MEDS ORDERED: HEPARIN/NACL 0.9% 2 UNITS/ML 500 ML IV ONE (08:15)
[2018-08-03] MEDS ORDERED: MIDAZOLAM 2 MG/2 ML VIAL ONE ×2 (08:15→09:49)
[2018-08-03] MEDS ORDERED: fentaNYL 100 MCG/2 ML VIAL ONE ×2 (08:16→09:49)
[2018-08-03] MEDS ORDERED: ceFAZolin 1,000 MG VIAL ONE (08:17)
[2018-08-03] MEDS ORDERED: ceFAZolin 1,000 MG in SYRINGE 1 EACH IV ONE (08:30)
[2018-08-03] MEDS ORDERED: TISSUE ADHESIVE 1 EACH APPLICATOR TOP ONE (09:56)
[2018-08-03] MEDS: ASPIRIN EC 81 MG TABLET PO SCH (12:46)
[2018-08-03] MEDS: LOSARTAN 50 MG TABLET PO SCH ×2 (12:47→20:31)
[2018-08-03] MEDS: FERROUS GLUCONATE 240 MG TABLET PO SCH (12:47)
[2018-08-03] MEDS: NAPROXEN 250 MG TABLET PO SCH ×2 (12:47→20:31)
[2018-08-03] MEDS: PANTOPRAZOLE 40 MG TABLET PO SCH (12:47)
[2018-08-03] MEDS: FUROSEMIDE 20 MG TABLET PO SCH (12:47)
[2018-08-03] MEDS: DOCUSATE SODIUM 100 MG CAPSULE PO SCH (12:47)
[2018-08-03] MEDS: ESCITALOPRAM 10 MG TABLET PO SCH (12:47)
[2018-08-03] MEDS: MULTIVITAMIN (CENTRUM) TABLET PO SCH (12:47)
[2018-08-03] MEDS: MULTIVITAMIN (OCUVITE) TABLET PO SCH ×2 (12:47→20:31)
[2018-08-03] MEDS: amLODIPine 2.5 MG TABLET PO SCH (12:48)
[2018-08-03] MEDS: METOPROLOL SUCCINATE XL 50 MG TABLET PO SCH (12:50)
[2018-08-03] MEDS: ceFAZolin 1,000 MG in SYRINGE 1 EACH IV SCH (18:33)
[2018-08-03] MEDS: ATORVASTATIN 40 MG TABLET PO SCH (20:31)
[2018-08-04] MEDS: ceFAZolin 1,000 MG in SYRINGE 1 EACH IV SCH (00:48)
[2018-08-04] MEDS: ACETAMINOPHEN 325 MG TABLET PO PRN (01:30)
[2018-08-04 05:00] LABS: Basophils % 0.8 % (0.0-0.8); Eosinophils # 0.2 10*3/uL (0.0-0.87); Eosinophils % 3.1 % (0.00-10.9); Hematocrit 35.6 VOL% (42.0-52.0); Hemoglobin 11.2 GM/DL (14.0-18.0); Immature Granulocytes % 0.2 %; Immature Granulocytes Absolute 0.01 #; Lymphocytes # 1.4 10*3/uL (1.4-4.0); Lymphocytes % 27.7 % (21.2-54.2); Mean Corpuscular HGB Conc 31.5 GM/DL (32-36); Mean Corpuscular Hemoglobin 30 PG (27-34); Mean Corpuscular Volume 96.5 FL (87-102); Mean Platelet Volume 11.5 FL (9.6-12.0); Monocytes # 0.4 10*3/uL (0.11-0.8); Monocytes % 7.6 % (1.7-12.7); Neutrophils # 3.1 10*3/uL (1.4-7.4); Neutrophils % 60.6 % (38.7-73.9); Platelet Count 125 T/CUMM (130-400); Red Blood Count 3.69 MC/CUMM (3.8-5.5); Red Cell Distribution Width 12.9 % (9.3-17.3); White Blood Count 5.1 T/CUMM (4-12)
[2018-08-04 05:19] LABS: Calcium 8.5 MG/DL (8.5-10.1)
[2018-08-04 05:52] LABS: Calcium 7.8 MG/DL (8.5-10.1); Osmolality,Calculated 286.1 MOS/KG (273-304); Potassium 4.1 MMOL/L (3.5-5.1)
[2018-08-04] MEDS: DOCUSATE SODIUM 100 MG CAPSULE PO SCH (08:58)
[2018-08-04] MEDS: METOPROLOL SUCCINATE XL 50 MG TABLET PO SCH (08:58)
[2018-08-04] MEDS: NAPROXEN 250 MG TABLET PO SCH (08:58)
[2018-08-04] MEDS: ASPIRIN EC 81 MG TABLET PO SCH (08:58)
[2018-08-04] MEDS: MULTIVITAMIN (OCUVITE) TABLET PO SCH (08:58)
[2018-08-04] MEDS: FERROUS GLUCONATE 240 MG TABLET PO SCH (08:58)
[2018-08-04] MEDS: PANTOPRAZOLE 40 MG TABLET PO SCH (08:58)
[2018-08-04] MEDS: FUROSEMIDE 20 MG TABLET PO SCH (08:58)
[2018-08-04] MEDS: MULTIVITAMIN (CENTRUM) TABLET PO SCH (08:58)
[2018-08-04] MEDS: LOSARTAN 50 MG TABLET PO SCH (08:58)
[2018-08-04] MEDS: ESCITALOPRAM 10 MG TABLET PO SCH (08:58)
[2018-08-04 12:19] VITALS: BP 131/79
[2018-08-04] MEDS ORDERED: amLODIPine 2.5 MG TABLET PO ONE (13:03)
== END 2018-08-04 13:48 | disposition home or self-care (01) | DRG 244 ==
LOC: N.CL 05:40 → N.TELES 07:40
PROVIDERS: ADMIT Internal Medicine Clinical Cardiac Electrophysiology; ATTEND Internal Medicine Clinical Cardiac Electrophysiology